=== PATIENT | male | born 1990 | race Caucasian/White ===

== ENCOUNTER 2017-11-25 18:56 | Emergency (ER) | payer OTHER ==
[~2017-11-25] VITALS: Ht 188 cm; Wt 95.3 kg
[2017-11-25] MEDS ORDERED: ALPRAZolam 0.5 MG TABLET PO ONE (19:15)
--- NOTE | 2017-11-25 19:24 | PHYS DOC ---
General Chief Complaint: ANXIETY/PANIC ATTACK Stated Complaint: ANXIETY Time Seen by MD: 19:07 Source: patient Exam Limitations: no limitations Problems: History of Present Illness Initial Comments Patient is a 27-year-old male who comes in the ED complaining of possible panic attack. Patient states he's had anxiety symptoms in the past however today's symptoms seem to be worse. Patient states that for the past 4-5 days he's had generalized abdominal discomfort with intermittent vomiting and diarrhea. He's had sick contacts with similar symptoms no blood in stools or mucus no travel or bad food exposure. Denies focal pain complaints he is status post appendectomy and has had no right upper quadrant pain and no urinary symptoms. Today he felt overall weak with heavy breathing no actual chest pain. He says that the symptoms began to make him very anxious and he currently feels as if he's having a panic attack. Initially on arrival it was discussed that we would treat with antiemetics and Xanax and evaluate for patient response. The patient's parents arrived to the emergency department and expressed concern that the patient's anxiety symptoms seem to be worse than normal and they felt there could be more going on. At this point I initiated labs and full workup. Timing/Duration: other Severity: severe Modifying Factors: worse with eating Associated Symptoms: nausea/vomiting, shortness of breath, other Allergies: Coded Allergies: amoxicillin (Verified Allergy, Unknown, 11/25/17) Past Medical History Medical History: no pertinent history Surgical History: noncontributory Psychosocial History: anxiety Social History Smoker: non-smoker Alcohol: none Drugs: none Review of Systems Constitutional: denies chills, denies diaphoresis, denies fever, malaise, weakness Respiratory: denies cough, shortness of breath Cardiovascular: denies chest pain, denies palpitations Gastrointestinal: see HPI Genitourinary: denies dysuria, denies frequency, denies hematuria Musculoskeletal: denies back pain, denies joint swelling, muscle pain, muscle stiffness Psychiatric/Neurological: see HPI Physical Exam General Appearance: WD/WN, no apparent distress Ear, Nose, Throat: hearing grossly normal, normal ENT inspection, normal pharynx (dry membranes) Neck: non-tender, supple Respiratory: normal breath sounds, no respiratory distress Cardiovascular: normal peripheral pulses, regular rate, rhythm Gastrointestinal: normal bowel sounds, non tender, soft Back: no CVA tenderness, no vertebral tenderness Extremities: non-tender, normal inspection Neurologic/Psychiatric: irrigator sprinkling system II-XII nml as tested, no motor/sensory deficits, alert, normal mood/affect, oriented x 3 Skin: pallor (poor turgor) Orders, Labs, Meds EKG: Normal sinus rhythm 75 bpm, no ST segment elevation interpreted by me. Chest AP: No acute cardiopulmonary process interpreted by me. Pertinent labs: Potassium 2.8, 40 mEq potassium chloride given by mouth as well as 0.5 mg Xanax, a 1 L normal saline IV bolus and Zofran. Patient rechecked after fluids and meds he is feeling much better. He states that his symptoms of nearly all resolved. I discussed potassium need for replacement and to be rechecked in a few days. I discussed signs and symptoms to monitor as well as indications for urgent return to the department. I discussed [id number] prescription medications as well as dietary modification and oral hydration. Patient's questions were answered expressed agreement and understanding with the treatment plan, he did not drive himself home. Departure Time of Disposition: 21:08 Disposition: 01 HOME, SELF-CARE Diagnosis: viral gastroenteritis, hypokalemia, dehydration, a Condition: GOOD Patient Instructions: Dehydration, Adult, Dven-qz-Rhne, Hypokalemia-Brief Additional Instructions: Please review the patient education materials given by ED staff. Clear liquids today, advance diet slowly to a bland as tolerated. Aggressive hydration with Gatorade and water. Prescription: Zofran ODT, dicyclomine, potassium chloride Zofran ODT starter pack was dispensed to you, take one every 6 hours as needed for nausea. Follow-up with your doctor on Wednesday for recheck and to recheck your potassium as discussed. Return to ED with new or changing symptoms. KRISTY CRUZ DO Nov 25, 2017 19:24
[2017-11-25] MEDS ORDERED: ALPRAZolam 0.25 MG TABLET ONE (19:30)
[2017-11-25] MEDS: ALPRAZolam 0.25 MG TABLET PO ONE (19:31)
[2017-11-25] MEDS: IV NORMAL SALINE 1,000ML 1,000 ML IV SCH (19:39)
[2017-11-25] MEDS: ONDANSETRON PF 4 MG/2 ML VIAL. IV ONE (19:45)
[2017-11-25 20:14] LABS: BASO # 0.1 x10^3/uL (0.0-0.2); BASO % 1 % (0-3); EOS # 0.2 x10^3/uL (0.0-0.7); EOS % 2 % (0-3); HEMOGLOBIN 15.7 g/dL (13.0-17.5); LYMPH # 2.4 x10^3/uL (1.0-4.8); LYMPH % 22 % (24-48); MEAN CORPUSCULAR HEMOGLOBIN 28 pg (25-35); MEAN CORPUSCULAR HGB CONC 34 g/dL (31-37); MEAN CORPUSCULAR VOLUME 82 fL (79-100); MONO # 0.7 x10^3/uL (0.0-1.1); MONO % 7 % (0-9); NEUT # 7.7 x10^3uL (1.8-7.7); NEUT % 69 % (31-73); PLATELET COUNT 299 x10^3/uL (140-400); RED BLOOD COUNT 5.61 x10^6/uL (4.30-5.70); RED CELL DISTRIBUTION WIDTH 13.1 % (11.5-14.5)
[2017-11-25 20:21] LABS: ALBUMIN 4.1 g/dL (3.4-5.0); ALBUMIN/GLOBULIN RATIO 1.1 (1.0-1.7); CALCIUM 9.8 mg/dL (8.5-10.1); TOTAL BILIRUBIN 0.7 mg/dL (0.2-1.0); TOTAL PROTEIN 7.8 g/dL (6.4-8.2)
[2017-11-25 20:23] LABS: POTASSIUM 2.8 mmol/L (3.5-5.1)
[2017-11-25 20:37] LABS: AMPHETAMINE/METHAMPHETAMINE NEG (NEG); BARBITURATES NEG (NEG); BENZODIAZEPINES NEG (NEG); CANNABINOIDS NEG (NEG); COCAINE NEG (NEG); METHADONE NEG (NEG); OPIATES NEG (NEG); PHENCYCLIDINE NEG (NEG)
[2017-11-25 20:48] LABS: BILIRUBIN,URINE NEG (NEG); CLARITY,URINE CLEAR; COLOR,URINE YELLOW; GLUCOSE,URINE NEG (NEG); NITRITE,URINE NEG (NEG); UROBILINOGEN,URINE 0.2 mg/dL (0.2 mg/dL)
[2017-11-25 20:49] LABS: BACTERIA,URINE 0 /HPF (0-FEW); RBC,URINE RARE /HPF (0-2); SQUAMOUS EPITHELIAL CELL,UR FEW /LPF; WBC,URINE OCC /HPF (0-4)
[2017-11-25] MEDS: POTASSIUM CHLORIDE 20 MEQ TABLET.ER. PO ONE (21:00)
[2017-11-25] MEDS ORDERED: DICY20TA3 PO (21:08)
[2017-11-25] MEDS ORDERED: ONDA4TAB10 PO (21:08)
[2017-11-25] MEDS ORDERED: POTA20TA82 PO (21:08)
[2017-11-25] MEDS: ONDANSETRON 4MG ODT 4TABLET STARTPACK. PO ONE (21:30)
[2017-11-25] MEDS: DICYCLOMINE HCL 20 MG TABLET PO ONE (21:30)
[2017-11-25 21:42] VITALS: BP 130/72
--- NOTE | 2017-11-26 00:46 | EKG ---
[address] [address] Test Date: 2017-11-25 Test Time: 19:02:21 Pat Name: ERIC DOMINGO Department: Room: Gender: M [employer]: : [id number] Requested By: KRISTY CRUZ Order Number: [id number] Reading MD: Devante Sahu MD Measurements Intervals [place] Rate: 75 P: 46 MA: 178 QRS: 13 QRSD: 112 T: 19 QT: 384 QTc: 431 Interpretive Statements SINUS RHYTHM Electronically Signed On 11-30-2017 16:59:21 [facility] by Devante Sahu MD
--- NOTE | 2017-11-26 07:36 | RAD ---
Portable chest, 11/25/2017: History: Chest pain The heart size and pulmonary vascularity are normal. The lungs are clear. There is no evidence of pleural fluid. IMPRESSION: No acute cardiopulmonary abnormality is detected.
== END 2017-11-25 21:44 | disposition home or self-care (01) ==
LOC: ER 18:56
DX: A08.4 Viral intestinal infection, unspecified (principal); E86.0 Dehydration; E87.6 Hypokalemia; F41.9 Anxiety disorder, unspecified; Z88.1 Allergy status to other antibiotic agents
CPT/HCPCS: 36415; 71045; 80053; 80307; 81001; 83690; 84484; 85025; 96361; 96374; 99285; J2405; Q0162; G0479; J7030